=== PATIENT | female | born 1980 | race Caucasian/White ===

== ENCOUNTER → 2019-02-10 | Outpatient (CLI) | payer MEDICARE ==
--- NOTE | 2019-02-10 15:44 | Diagnostic Imaging Report ---
TECHNIQUE: Magnetic resonance imaging of the LEFT WRIST was performed WITHOUT injected contrast, on a 1.5 jam magnet. HISTORY: Pain COMPARISON: None available. FINDINGS: Bone and bone marrow: No fracture. Reactive edema in the distal radius and scaphoid. Joints: Widening of the scapholunate interval with volar rotation of the scaphoid arthrosis between the articulation of the radial styloid and scaphoid. No proximal migration of the capitate Radiocarpal synovitis. Ligaments: Scapholunate: Complete tear Lunotriquetral: Intact Triangular fibrocartilage complex: Intact Extrinsic ligaments: Intact Tendons: Tenosynovitis of the flexor carpi radialis Carpal tunnel: The median nerve is within normal limits. Other soft tissues: Otherwise, unremarkable. 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 Radiocarpal synovitis with reactive edema of the distal radius and scaphoid. Tenosynovitis of the flexor carpi radialis Signed by: Dr. Mello Perez M.D. on 02/10/2019 3:41 PM
== END ==
LOC: MRI 13:23
PROVIDERS: ATTEND Plastic Surgery
DX: M25.532 Pain in left wrist (principal); M65.88 Other synovitis and tenosynovitis, other site